=== PATIENT | female | born 1960 | race Caucasian/White ===

== ENCOUNTER 2017-08-30 05:27 | Day surgery (SDC) | payer BC ==
[~2017-08-30] VITALS: Ht 170.2 cm; Wt 81.6 kg
[~2017-08-30 05:27] MED LIST: CALCIUM 500 +1 EACH PO; CLARITIN,ALAVAR10 MG PO; GLUCOPHAGE500 MG PO; LIPITOR10 MG PO; LORCET 5-325 M1 EACH PO; STOOL SOFTENER100 MG PO; TYLENOL EXTRA500 MG PO; ZESTRIL2.5 MG PO
[2017-08-30 05:57] VITALS: BP 162/80
[2017-08-30 10:28] VITALS: BP 117/66
[2017-08-30 11:15] VITALS: BP 142/87
[2017-08-30 11:28] VITALS: BP 142/87
== END 2017-08-30 11:40 | disposition home or self-care (01) ==
LOC: SDC 05:27
PROVIDERS: Neurological Surgery
DX: M51.17 Intervertebral disc disorders with radiculopathy, lumbosacral region (principal); E11.9 Type 2 diabetes mellitus without complications; E78.5 Hyperlipidemia, unspecified; Z90.710 Acquired absence of both cervix and uterus; Z79.84 Long term (current) use of oral hypoglycemic drugs
CPT/HCPCS: 72020; 76000; 82948; 86850; 86900; 86901; J0690; J1100; J1170; J2250; J2405; J2710; J3010; S0020